=== PATIENT | female | born 1990 | race Caucasian/White ===

== ENCOUNTER 2017-01-20 21:12 | Outpatient (CLI) | payer BC ==
[2017-01-20] MEDS ORDERED: Terbutaline 1 MG/ML SDV SUBCUT ONE (22:36)
[2017-01-20] MEDS ORDERED: Lactated Ringers 1,000 ML IV SCH (22:45)
== END 2017-01-21 00:40 | disposition home or self-care (01) ==
LOC: MW.OBCHECK 21:12 → MW.OB 21:21 → MW.OBCHECK 01-21 00:40
PROVIDERS: ATTEND Obstetrics & Gynecology
DX: O47.02 False labor before 37 completed weeks of gestation, second trimester (principal); Z3A.25 25 weeks gestation of pregnancy
CPT/HCPCS: 59025; 81003; 84112; 96360; 96372; J3105; J7120

== ENCOUNTER 2017-04-05 21:40 | Inpatient (IN) | payer BC ==
[2017-04-05] MEDS ORDERED: Misoprostol 200 MCG Tab PO PRN (22:28)
[2017-04-05] MEDS ORDERED: Methylergonovine 0.2 MG/1 ML Amp IM PRN (22:28)
[2017-04-05] MEDS ORDERED: Sodium Chloride 0.9% 2.5 ML Syringe FLUSH PRN (22:28)
[2017-04-05] MEDS ORDERED: Carboprost Tromethamine 250 MCG/1 ML Amp IM PRN (22:28)
[2017-04-05] MEDS ORDERED: Water For Irrigation,Sterile 1,000 ML Container IRR PRN (22:28)
[2017-04-05] MEDS ORDERED: Sodium Chloride 0.9% 10 ML Syringe FLUSH PRN (22:28)
[2017-04-05] MEDS ORDERED: Butorphanol 1 MG/ML SDV IVPUSH PRN (22:28)
[2017-04-05] MEDS ORDERED: Lidocaine 1% 50 ML MDV INJECT PRN (22:28)
[2017-04-05] MEDS ORDERED: Oxytocin/Lactated Ringers 30 UNIT/500 ML BAG IV SCH (22:30)
[2017-04-05] MEDS ORDERED: Lactated Ringers 1,000 ML IV SCH (22:30)
--- NOTE | 2017-04-05 23:22 | PCM.LDHP ---
L&D History of Present Illness - General Date of Service: 04/05/17 Admit Problem/Dx: Patient Status Order with Admit Dx/Problem 04/05/17 22:28 Patient Status [ADT] Routine Admission Diagnosis/Problem Admission Diagnosis/Problem Source of Information: Patient History Limitations: Reports: No Limitations - History of Present Illness Improves with: Reports: None Worsens with: Reports: None Associated Symptoms: Reports: N - Related Data Allergies/Adverse Reactions: Allergies Allergy/AdvReac Type Severity Reaction Status Date / Time morphine Allergy Hives Verified 09/14/16 19:40 Home Medications: Home Meds Aspirin [Children's Aspirin] 81 mg PO DAILY 09/14/16 [History] Estradiol [Estrace] 2 mg PO TID 09/14/16 [History] Folic Acid 1 mg PO DAILY 09/14/16 [History] Vit No.129/Iron/FA [ One Daily Tablet] DAILY 09/14/16 [History ] Past Medical History HEENT History: Reports: None Cardiovascular History: Reports: None Respiratory History: Reports: None Gastrointestinal History: Reports: None Genitourinary History: Reports: None 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: Neurological History: Reports: None Psychiatric History: Reports: None Hematologic History: Reports: Other (See Below) Other Hematologic History: "clotting disorder" Oncologic (Cancer) History: Reports: None - Infectious Disease History Infectious Disease History: Reports: Chicken Pox - Past Surgical History Musculoskeletal Surgical History: Reports: Other (See Below) Social & Family History - Family History Family Medical History: Noncontributory - Tobacco Use Smoking Status *Q: Never Smoker Second Hand Smoke Exposure: No - Caffeine Use Caffeine Use: Reports: Coffee - Alcohol Use Days Per Week of Alcohol Use: 0 - Recreational Drug Use Recreational Drug Use: No H&P Review of Systems - Review of Systems: Review Of Systems: See Below General: Reports: No Symptoms HEENT: Reports: No Symptoms Pulmonary: Reports: No Symptoms Cardiovascular: Reports: No Symptoms Gastrointestinal: Reports: No Symptoms Genitourinary: Reports: No Symptoms Musculoskeletal: Reports: No Symptoms Skin: Reports: No Symptoms Psychiatric: Reports: No Symptoms Neurological: Reports: No Symptoms Hematologic/Lymphatic: Reports: No Symptoms Immunologic: Reports: No Symptoms L&D Exam - Exam Exam: See Below - Vital Signs Weight: 69.003 kg - OB Specific Fundal Height In cm: 36 Contraction Intensity: Moderate Movement: Active Heart Tones: Present Presentation: Vertex - Benjamin Score Benjamin Score Cervix Position: Anterior Benjamin Score Effacement: >80% Benjamin Score Dilation: > 5 cm Benjamin Score 's Station: -1 ,0 - Exam General: Alert, Oriented HEENT: PERRLA, Conjunctiva Clear, EACs Clear, EOMI, Hearing Intact, Mucosa Moist & [place], Nares Patent, Normal Nasal Septum, Posterior Pharynx Clear, TMs Clear Neck: Supple, Trachea Midline Lungs: Clear to Auscultation, Normal Respiratory Effort Cardiovascular: Regular Rate, Regular Rhythm GI/Abdominal Exam: Normal Bowel Sounds, Soft, Non-Tender, No Organomegaly, No Distention, No Abnormal Bruit, No Mass, Pelvis Stable Rectal Exam: Normal Exam, Normal Rectal Tone Genitourinary: Normal external exam, Normal bimanual exam, Normal speculum exam Back Exam: Normal Inspection, Full Range of Motion Extremities: Normal Inspection, Normal Range of Motion, Non-Tender, No Pedal Edema, Normal Capillary Refill Skin: Warm, Dry, Intact Neurological: Cranial Nerves Intact, Reflexes Equal Bilateral Psychiatric: Alert, Normal Affect, Normal Mood - Patient Data Lab Results Last 24 hrs: Laboratory Results - last 24 hr 04/05/17 Range/Units 22:52 WBC 15.55 H (4.0-11.0) K/uL RBC 3.92 L (4.30-5.90) M/uL Hgb 12.4 (12.0-16.0) g/dL Hct 36.1 (36.0-46.0) % MCV 92.1 (80.0-98.0) fL MCH 31.6 (27.0-32.0) pg MCHC 34.3 (31.0-37.0) g/dL RDW Std Deviation 42.3 (28.0-62.0) fl RDW Coeff of Nathan 13 (11.0-15.0) % Plt Count 206 (150-400) K/uL MPV 10.50 (7.40-12.00) fL Nucleated RBC % 0.0 /100WBC Nucleated RBCs # 0 K/uL Result Diagrams: 04/05/17 22:52 Problem List Initiated/Reviewed/Updated: Yes Orders Last 24hrs: Active Orders 24 hr Category Date Time Status Patient Status [ADT] Routine ADT 04/05/17 22:28 Active Heart Tones [RC] CONTINUOUS Care 04/05/17 22:28 Active Non Stress Test [RC] PER UNIT ROUTINE Care 04/05/17 22:28 Active May Shower [RC] ASDIRECTED Care 04/05/17 22:28 Active Notify Provider [RC] PRN Care 04/05/17 22:28 Active Up ad Chrissie [RC] ASDIRECTED Care 04/05/17 22:28 Active Vaginal Exam [RC] PRN Care 04/05/17 22:28 Active Vital Signs [RC] PER UNIT ROUTINE Care 04/05/17 22:28 Active TYPE AND SCREEN [BBK] Routine Lab 04/05/17 22:52 Received Butorphanol [Stadol] Med 04/05/17 22:28 Active 1 mg IVPUSH Q1H PRN Carboprost Tromethamine [Hemabate DS] Med 04/05/17 22:28 Active 250 mcg IM ASDIRECTED PRN Lactated Ringers [Ringers, Lactated] 1,000 ml Med 04/05/17 22:30 Active IV ASDIRECTED Lidocaine 1% [Xylocaine 1%] Med 04/05/17 22:28 Active 50 ml INJECT .ONCE PRN Methylergonovine [Methergine] Med 04/05/17 22:28 Active 0.2 mg IM ASDIRECTED PRN Misoprostol [Cytotec] Med 04/05/17 22:28 Active 200 mcg PO .ONCE PRN Oxytocin/Lactated Ringers [Pitocin in LR 30 Units/500 Med 04/05/17 22:30 Active ML] 30 unit in 500 ml IV TITRATE Sodium Chloride 0.9% [Saline Flush] Med 04/05/17 22:28 Active 10 ml FLUSH ASDIRECTED PRN Sodium Chloride 0.9% [Saline Flush] Med 04/05/17 22:28 Active 2.5 ml FLUSH ASDIRECTED PRN Water For Irrigation,Sterile [Sterile Water for Med 04/05/17 22:28 Active Irrigation] 1,000 ml IRR ASDIRECTED PRN Scalp Electrode [WOMSER] Per Unit Routine Oth 04/05/17 22:28 Ordered Peripheral IV Insertion Adult [OM.PC] Routine Oth 04/05/17 22:28 Ordered Resuscitation Status Routine Resus Stat 04/05/17 22:28 Ordered Medication Orders Butorphanol Tartrate (Stadol) 1 mg IVPUSH Q1H PRN PRN Reason: Pain Carboprost Tromethamine (Hemabate Ds) 250 mcg IM ASDIRECTED PRN PRN Reason: Post Hemorrhage Lactated Ringer's (Ringers, Lactated) 1,000 mls @ 150 mls/hr IV ASDIRECTED TAMMIE Oxytocin/Lactated Ringer's (Pitocin In Lr 30 Units/500 Ml) 30 unit in 500 mls @ 500 mls/hr IV TITRATE TAMMIE PRN Reason: 500 MUNITS/MIN Stop: 04/05/17 23:29 Lidocaine HCl (Xylocaine 1%) 50 ml INJECT .ONCE PRN PRN Reason: Laceration repair Methylergonovine Maleate (Methergine) 0.2 mg IM ASDIRECTED PRN PRN Reason: Post Hemorrhage Misoprostol (Cytotec) 200 mcg PO .ONCE PRN PRN Reason: Post Hemorrhage Sodium Chloride (Saline Flush) 10 ml FLUSH ASDIRECTED PRN PRN Reason: Keep Vein Open Sodium Chloride (Saline Flush) 2.5 ml FLUSH ASDIRECTED PRN PRN Reason: Keep Vein Open Sterile Water (Sterile Water For Irrigation) 1,000 ml IRR ASDIRECTED PRN PRN Reason: delivery Assessment/Plan Comment:: IUP 36+1 by date and U/S have care in [place] presented in active labor contraction are Moderate FAR are category 1. Cx 6-7/90/v/0 she is P1011 GBS is negative. Plan to admit anteceding she can have Epidural if she what one.
[2017-04-05] MEDS ORDERED: Ropivacaine 0.2% 2 MG/ML 20 ML SDV ONE (23:40)
[2017-04-05] MEDS ORDERED: fentaNYL 100 MCG/2 ML SDV ONE (23:44)
--- NOTE | 2017-04-06 00:02 | PCM.PREANE ---
Preanesthetic Assessment - Anesthesia/Transfusion/Family Hx Anesthesia History: Prior Anesthesia Without Reaction Family History of Anesthesia Reaction: No - Review of Systems Other: Reports: None - Physical Assessment Height: 5 ft 9 in Weight: 69.003 kg ASA Class: 2 Mental Status: Alert & Oriented x3 Dentition: Reports: Normal Dentition Thyro-Mental Finger Breadths: 3 Mouth Opening Finger Breadths: 3 ROM/Head Extension: Full - Lab Values: Laboratory Last Values WBC 15.55 K/uL (4.0-11.0) H 04/05/17 22:52 RBC 3.92 M/uL (4.30-5.90) L 04/05/17 22:52 Hgb 12.4 g/dL (12.0-16.0) 04/05/17 22:52 Hct 36.1 % (36.0-46.0) 04/05/17 22:52 MCV 92.1 fL (80.0-98.0) 04/05/17 22:52 MCH 31.6 pg (27.0-32.0) 04/05/17 22:52 MCHC 34.3 g/dL (31.0-37.0) 04/05/17 22:52 RDW Std Deviation 42.3 fl (28.0-62.0) 04/05/17 22:52 RDW Coeff of Nathan 13 % (11.0-15.0) 04/05/17 22:52 Plt Count 206 K/uL (150-400) 04/05/17 22:52 MPV 10.50 fL (7.40-12.00) 04/05/17 22:52 Nucleated RBC % 0.0 /100WBC 04/05/17 22:52 Nucleated RBCs # 0 K/uL 04/05/17 22:52 Blood Type B POSITIVE 04/05/17 22:52 Antibody Screen NEGATIVE 04/05/17 22:52 - Allergies Allergies/Adverse Reactions: Allergies Allergy/AdvReac Type Severity Reaction Status Date / Time morphine Allergy Hives Verified 09/14/16 19:40 - Blood Blood Available: Yes Product(s) Available: PRBC - Acknowledgements Anesthesia Type Planned: Spinal Pt an Appropriate Candidate for the Planned Anesthesia: Yes Alternatives and Risks of Anesthesia Discussed w Pt/Guardian: Yes Pt/Guardian Understands and Agrees with Anesthesia Plan: Yes PreAnesthesia Questionnaire HEENT History: Reports: None Cardiovascular History: Reports: None Respiratory History: Reports: None Gastrointestinal History: Reports: None Genitourinary History: Reports: None 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: Neurological History: Reports: None Psychiatric History: Reports: None Hematologic History: Reports: Other (See Below) Other Hematologic History: "clotting disorder" Oncologic (Cancer) History: Reports: None - Infectious Disease History Infectious Disease History: Reports: Chicken Pox - Past Surgical History Musculoskeletal Surgical History: Reports: Other (See Below) - SUBSTANCE USE Smoking Status *Q: Never Smoker Second Hand Smoke Exposure: No Days Per Week of Alcohol Use: 0 Recreational Drug Use History: No - HOME MEDS Home Medications: Home Meds Aspirin [Children's Aspirin] 81 mg PO DAILY 09/14/16 [History] Estradiol [Estrace] 2 mg PO TID 09/14/16 [History] Folic Acid 1 mg PO DAILY 09/14/16 [History] Vit No.129/Iron/FA [ One Daily Tablet] DAILY 09/14/16 [History ] - CURRENT (IN HOUSE) MEDS Current Meds: Current Medications Butorphanol Tartrate (Stadol) 1 mg IVPUSH Q1H PRN PRN Reason: Pain Carboprost Tromethamine (Hemabate Ds) 250 mcg IM ASDIRECTED PRN PRN Reason: Post Hemorrhage Lactated Ringer's (Ringers, Lactated) 1,000 mls @ 150 mls/hr IV ASDIRECTED TAMMIE Lidocaine HCl (Xylocaine 1%) 50 ml INJECT .ONCE PRN PRN Reason: Laceration repair Methylergonovine Maleate (Methergine) 0.2 mg IM ASDIRECTED PRN PRN Reason: Post Hemorrhage Misoprostol (Cytotec) 200 mcg PO .ONCE PRN PRN Reason: Post Hemorrhage Sodium Chloride (Saline Flush) 10 ml FLUSH ASDIRECTED PRN PRN Reason: Keep Vein Open Sodium Chloride (Saline Flush) 2.5 ml FLUSH ASDIRECTED PRN PRN Reason: Keep Vein Open Sterile Water (Sterile Water For Irrigation) 1,000 ml IRR ASDIRECTED PRN PRN Reason: delivery Discontinued Medications Fentanyl (Sublimaze) Confirm Administered Dose 100 mcg .ROUTE .STK-MED ONE Stop: 04/05/17 23:45 Oxytocin/Lactated Ringer's (Pitocin In Lr 30 Units/500 Ml) 30 unit in 500 mls @ 500 mls/hr IV TITRATE TAMMIE PRN Reason: 500 MUNITS/MIN Stop: 04/05/17 23:29 Ropivacaine/Fentanyl/NS (Fentanyl 2 Mcg-Ropiv 0.2%-Ns) Confirm Administered Dose 100 mls @ as directed .ROUTE .STK-MED ONE Stop: 04/05/17 23:41 Ropivacaine (Naropin 0.2%) Confirm Administered Dose 20 ml .ROUTE .STK-MED ONE Stop: 04/05/17 23:41
[2017-04-06] MEDS ORDERED: Acetaminophen 500 MG Tab PO PRN (00:24)
[2017-04-06] MEDS ORDERED: Benzocaine/Menthol 20%-0.5% Spray 78 GM Cannister TOP PRN (00:24)
[2017-04-06] MEDS ORDERED: Witch Hazel Medicated Pads 40/Jar TOP PRN (00:24)
[2017-04-06] MEDS ORDERED: Bisacodyl 10 MG Supp RECTAL PRN (00:24)
[2017-04-06] MEDS ORDERED: oxyCODONE 5 MG Tab PO PRN (00:24)
[2017-04-06] MEDS ORDERED: Lanolin 100% Cream 7 GM Tube TOP PRN (00:24)
[2017-04-06] MEDS ORDERED: Docusate Sodium 100 MG Cap PO PRN (00:24)
[2017-04-06] MEDS ORDERED: Ibuprofen 400 MG Tab PO PRN (00:24)
--- NOTE | 2017-04-06 01:14 | OR ---
SURGEON: Deepak Powers MD DATE OF PROCEDURE: DELIVERY NOTE: This patient is a 26-year-old patient. She is para 1-0-1-1. She had no care in our area; however, she had a care in [place] and we were able to obtain her record. The patient presented to our Labor and Delivery in active labor. At the time of admission, she was 6 to 7 cm, vertex 90%, zero station with bulging bag of water. We were able to obtain her records from her doctor in [place]. Her GBS status was negative. She was confirmed 36 plus one weeks by date and ultrasound and the patient is to have [id number] contractions. She have intrathecal for labor anesthesia. The heart rate was category one. The patient continued to contract without any problem and she was able to accomplish normal spontaneous vaginal delivery. Dr. Powell, the commercial lines assistant has attended the delivery because the fetus was 36 plus 1. The fetus is male, cried immediately. score reported to be 8 and 9. The weight is not available. The placenta delivered spontaneous, complete, and intact without any problem. The perineum was intact. There was very small skid manny. Left labial laceration was not bleeding. Did not need any stitches. Estimated blood loss in this is 250 to 300 mL. No complications. CLYDE / ALE /[id number]
[2017-04-06] MEDS ORDERED: fentaNYL/Ropivacaine/Ns/PF 100 ML Bag IV ONE (08:55)
--- NOTE | 2017-04-06 09:42 | PCM48HPAN ---
Post Anesthesia Note - EVALUATION WITHIN 48HRS OF ANESTHETIC Vital Signs in Normal Range: Yes Patient Participated in Evaluation: Yes Respiratory Function Stable: Yes Airway Patent: Yes Cardiovascular Function Stable: Yes Hydration Status Stable: Yes Pain Control Satisfactory: Yes Nausea and Vomiting Control Satisfactory: Yes Mental Status Recovered: Yes
[2017-04-06] MEDS: Ibuprofen 800 MG Tab PO PRN (10:31)
[2017-04-06] MEDS: Acetaminophen 500 MG Tab PO PRN ×2 (13:52→20:49)
[2017-04-07] MEDS: Acetaminophen 500 MG Tab PO PRN ×2 (00:57→08:20)
[2017-04-07] MEDS: Ibuprofen 800 MG Tab PO PRN (03:33)
[2017-04-07 08:29] VITALS: BP 117/68
--- NOTE | 2017-04-07 08:44 | PCM.DCSUM1 ---
Discharge Summary - Discharge Data Discharge Date: 04/07/17 Discharge Disposition: Home, Self-Care 01 Condition: Good - Patient Instructions Diet: Usual Diet as Tolerated Driving: Do Not Drive Showering/Bathing: May Shower Notify Provider of: Fever, Increased Pain, Nausea and/or Vomiting - Discharge Plan Home Medications: Home Meds Aspirin [Children's Aspirin] 81 mg PO DAILY 09/14/16 [History] Estradiol [Estrace] 2 mg PO TID 09/14/16 [History] Folic Acid 1 mg PO DAILY 09/14/16 [History] Vit No.129/Iron/FA [ One Daily Tablet] DAILY 09/14/16 [History ] - General Info Date of Service: 04/07/17 Functional Status: Reports: Pain Controlled - Review of Systems General: Reports: No Symptoms HEENT: Reports: No Symptoms Pulmonary: Reports: No Symptoms Cardiovascular: Reports: No Symptoms Gastrointestinal: Reports: No Symptoms Genitourinary: Reports: No Symptoms Musculoskeletal: Reports: No Symptoms Skin: Reports: No Symptoms Neurological: Reports: No Symptoms Psychiatric: Reports: No Symptoms - Patient Data Vitals - Most Recent: Last Vital Signs Temp 36.6 C 04/07/17 08:00 Pulse 69 04/07/17 08:00 Resp 16 04/07/17 08:00 BP 117/68 04/07/17 08:00 Pulse Ox 97 04/07/17 08:00 Weight - Most Recent: 68.946 kg Lab Results - Last 24 hrs: Laboratory Results - last 24 hr 04/07/17 Range/Units 05:03 Hgb 11.5 L (12.0-16.0) g/dL Hct 34.6 L (36.0-46.0) % Med Orders - Current: Current Medications Acetaminophen (Tylenol Extra Strength) 500 mg PO Q4H PRN PRN Reason: Pain Acetaminophen (Tylenol Extra Strength) 1,000 mg PO Q4H PRN PRN Reason: Pain Last Admin: 04/07/17 08:20 Dose: 1,000 mg Benzocaine/Menthol (Dermoplast Pain Relief 20%-0.5% [place]) 78 gm TOP ASDIRECTED PRN PRN Reason: Perineal Comfort Measure Bisacodyl (Dulcolax) 10 mg RECTAL .ONCE PRN PRN Reason: Constipation Butorphanol Tartrate (Stadol) 1 mg IVPUSH Q1H PRN PRN Reason: Pain Carboprost Tromethamine (Hemabate Ds) 250 mcg IM ASDIRECTED PRN PRN Reason: Post Hemorrhage Docusate Sodium (Colace) 100 mg PO BID PRN PRN Reason: Constipation Last Admin: 04/06/17 20:49 Dose: 100 mg Emollient Ointment (Lansinoh Hpa) 0 gm TOP ASDIRECTED PRN PRN Reason: Sore Nipples Lactated Ringer's (Ringers, Lactated) 1,000 mls @ 150 mls/hr IV ASDIRECTED TAMMIE Last Admin: 04/05/17 23:20 Dose: 999 mls/hr Ibuprofen (Motrin) 400 mg PO Q4H PRN PRN Reason: Pain Ibuprofen (Motrin) 800 mg PO Q6H PRN PRN Reason: Pain Last Admin: 04/07/17 03:33 Dose: 800 mg Lidocaine HCl (Xylocaine 1%) 50 ml INJECT .ONCE PRN PRN Reason: Laceration repair Methylergonovine Maleate (Methergine) 0.2 mg IM ASDIRECTED PRN PRN Reason: Post Hemorrhage Misoprostol (Cytotec) 200 mcg PO .ONCE PRN PRN Reason: Post Hemorrhage Oxycodone HCl (Oxycodone) 5 mg PO Q2H PRN PRN Reason: Pain Sodium Chloride (Saline Flush) 10 ml FLUSH ASDIRECTED PRN PRN Reason: Keep Vein Open Sodium Chloride (Saline Flush) 2.5 ml FLUSH ASDIRECTED PRN PRN Reason: Keep Vein Open Sterile Water (Sterile Water For Irrigation) 1,000 ml IRR ASDIRECTED PRN PRN Reason: delivery Witch Gregoria (Tucks) 1 pad TOP ASDIRECTED PRN PRN Reason: comfort care Discontinued Medications Fentanyl (Sublimaze) Confirm Administered Dose 100 mcg .ROUTE .STK-MED ONE Stop: 04/05/17 23:45 Last Admin: 04/06/17 07:36 Dose: Not Given Oxytocin/Lactated Ringer's (Pitocin In Lr 30 Units/500 Ml) 30 unit in 500 mls @ 500 mls/hr IV TITRATE TAMMIE PRN Reason: 500 MUNITS/MIN Stop: 04/05/17 23:29 Last Admin: 04/06/17 00:20 Dose: 500 munits/min, 500 mls/hr Ropivacaine/Fentanyl/NS (Fentanyl 2 Mcg-Ropiv 0.2%-Ns) Confirm Administered Dose 100 mls @ as directed .ROUTE .STK-MED ONE Stop: 04/05/17 23:41 Last Admin: 04/06/17 07:36 Dose: Not Given Ropivacaine (Naropin 0.2%) Confirm Administered Dose 20 ml .ROUTE .STK-MED ONE Stop: 04/05/17 23:41 Last Admin: 04/06/17 07:36 Dose: Not Given - Exam General: Reports: alert, oriented HEENT: Reports: Pupils equal, Pupils reactive, EOMI, Mucous membr. moist/pink Neck: Reports: supple Lungs: Reports: Clear to Auscultation, Normal Respiratory Effort Cardiovascular: Reports: Regular Rate, Regular Rhythm GI/Abdominal Exam: Normal Bowel Sounds, Soft, Non-Tender, No Organomegaly, No Distention, No Abnormal Bruit, No Mass, Pelvis Stable (Female) Exam: Normal External Exam, Normal Speculum Exam, Normal Bimanual Exam Rectal (Female) Exam: Normal Exam, Normal Rectal Tone Back Exam: Reports: Normal Inspection, Full Range of Motion Extremities: Normal Inspection, Normal Range of Motion, Non-Tender, No Pedal Edema, Normal Capillary Refill Skin: Reports: warm, dry, intact Wound/Incisions: Reports: healing well Neurological: Reports: no new focal deficit Psy/Mental Status: Reports: alert, normal affect, normal mood *Q Meaningful Use (DIS) - VTE *Q VTE Criteria *Q: - Stroke *Q Stroke Criteria *Q: - AMI *Q AMI Criteria *Q:
[2017-04-07] MEDS ORDERED: Ondansetron 4 MG Tab.DIS PO PRN (10:18)
== END 2017-04-07 10:50 | disposition home or self-care (01) | DRG 560 ==
LOC: MW.OB 21:40 → MW.OBCHECK 21:40 → MW.OB 22:28 → MW.OBCHECK 22:28 → OBSVTOIN 04-06 00:18 → MW.OB 04-06 02:20
PROVIDERS: ADMIT Obstetrics & Gynecology; ATTEND Obstetrics & Gynecology
PROC: 10E0XZZ Delivery of Products of Conception, External Approach (ICD-10-PCS; principal; 2017-04-06)
DX: O80 Encounter for full-term uncomplicated delivery (principal); Z3A.36 36 weeks gestation of pregnancy; Z37.0 Single live birth
CPT/HCPCS: 01967; 36415; 59025; 85014; 85018; 85027; 86850; 86900; 86901; A9270-GY; J2795; J3010; J7120

== ENCOUNTER 2018-12-11 10:45 | Emergency (ER) | payer BC ==
--- NOTE | 2018-12-11 11:00 | EDM.PDOC ---
ED HPI GENERAL MEDICAL PROBLEM - General Chief Complaint: Abdominal Pain Stated Complaint: SPOKE TO NURSE Time Seen by Provider: 12/11/18 10:54 - History of Present Illness INITIAL COMMENTS - FREE TEXT/NARRATIVE: HISTORY AND PHYSICAL: History of present illness: Patient is a 28-year-old white female no significant past medical history presents a concern of vague chest pain this is poorly described without associated shortness of breath nausea vomiting palpitations or other concerns and no fever chills denies history of drug use she has had a history of depression and anxiety but states that been very stable for quite some time Review of systems: As per history of present illness and below otherwise all systems reviewed and negative. Past medical history: As per history of present illness and as reviewed below otherwise noncontributory. Surgical history: As per history of present illness and as reviewed below otherwise noncontributory. Social history: No reported history of drug or alcohol abuse. Family history: As per history of present illness and as reviewed below otherwise noncontributory. Physical exam: HEENT: Atraumatic, normocephalic, pupils reactive, negative for conjunctival pallor or scleral icterus, mucous membranes moist, throat clear, neck supple, nontender, trachea midline. Lungs: Clear to auscultation, breath sounds equal bilaterally, chest nontender. Heart: S1S2, regular, negative for clicks, rubs, or JVD. Abdomen: Soft, nondistended, nontender. Negative for masses or hepatosplenomegaly. Negative for costovertebral tenderness. Pelvis: Stable nontender. Genitourinary: Deferred. Rectal: Deferred. Extremities: Atraumatic, negative for cords or calf pain. Neurovascular unremarkable. Neuro: Awake, alert, oriented. Cranial nerves II through XII unremarkable. Cerebellum unremarkable. Motor and sensory unremarkable throughout. Exam nonfocal. Diagnostics: Chest x-ray EKG Therapeutics: None Impression: #1 medical screening exam # 2 atypical chest pain Definitive disposition and diagnosis as appropriate pending reevaluation and review of above. abdomen Pain Score (Numeric/FACES): 4 - Related Data Allergies Allergy/AdvReac Type Severity Reaction Status Date / Time morphine Allergy Hives Verified 12/11/18 10:50 Home Meds: Home Meds . 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: Neurological History: Reports: None Psychiatric History: Reports: None Hematologic History: Reports: Other (See Below) Other Hematologic History: "clotting disorder" Oncologic (Cancer) History: Reports: None Dermatologic History: Reports: None - Infectious Disease History Infectious Disease History: Reports: Chicken Pox, Shingles - Past Surgical History Head Surgeries/Procedures: Reports: None Musculoskeletal Surgical History: Reports: Other (See Below) Other Musculoskeletal Surgeries/Procedures:: arm surgery Social & Family History - Family History Family Medical History: Noncontributory Neurological: Reports: CVA - Tobacco Use Smoking Status *Q: Never Smoker - Caffeine Use Caffeine Use: Reports: Coffee - Recreational Drug Use Recreational Drug Use: No ED ROS GENERAL - Review of Systems Review Of Systems: ROS reveals no pertinent complaints other than HPI. ED EXAM, GENERAL - Physical Exam Exam: See Below (See dictation) Course - Vital Signs Last Recorded V/S: Last Vital Signs Temp 36.8 C 12/11/18 10:51 Pulse 111 H 12/11/18 10:51 Resp 20 12/11/18 10:51 BP 117/77 12/11/18 10:51 Pulse Ox 100 12/11/18 10:51 Departure - Departure Time of Disposition: 10:59 Disposition: Home, Self-Care 01 Condition: Good Clinical Impression: Atypical chest pain, Encounter for medical screening examination - Discharge Information Referrals: PCP,Unknown [Primary Care Provider] - Additional Instructions: The following information is given to patients seen in the emergency department who are being discharged to home. This information is to outline your options for follow-up care. We provide all patients seen in our emergency department with a follow-up referral. The need for follow-up, as well as the timing and circumstances, are variable depending upon the specifics of your emergency department visit. If you don't have a primary care physician on staff, we will provide you with a referral. We always advise you to contact your personal physician following an emergency department visit to inform them of the circumstance of the visit and for follow-up with them and/or the need for any referrals to a consulting specialist. The emergency department will also refer you to a specialist when appropriate. This referral assures that you have the opportunity for followup care with a specialist. All of these measure are taken in an effort to provide you with optimal care, which includes your followup. Under all circumstances we always encourage you to contact your private physician who remains a resource for coordinating your care. When calling for followup care, please make the office aware that this follow-up is from your recent emergency room visit. If for any reason you are refused follow-up, please contact the [facility] emergency department at and asked to speak to the emergency department charge nurse. Follow-up primary medical doctor return as needed as discussed
[2018-12-11] MEDS ORDERED: LORazepam 2 MG/ML SDV IM ONE (11:02)
[2018-12-11 11:43] VITALS: BP 124/72
== END 2018-12-11 11:42 | disposition home or self-care (01) ==
LOC: MW.ED 10:45
DX: O99.89 Other specified diseases and conditions complicating pregnancy, childbirth and the puerperium (principal); R07.89 Other chest pain; Z88.5 Allergy status to narcotic agent
CPT/HCPCS: 81025; 93005; 99284-25